=== PATIENT | female | born 1950 | race Caucasian/White ===

== ENCOUNTER 2017-08-28 22:16 | Observation (INO) | payer OTHER ==
[~2017-08-28] VITALS: Ht 154.9 cm; Wt 68.5 kg
[~2017-08-28 22:16] MED LIST: ELAVIL75 MG PO; GABAPENTIN400 MG PO; NEXIUM40 MG PO; SINGULAIR10 MG PO; SOMA350 MG PO
[2017-08-28 22:45] LABS: HEMATOCRIT 34.1 % (36.0-46.0); HEMOGLOBIN 11.9 G/DL (11.9-15.5); MCH 32.2 PG (29.0-34.0); MCHC 34.9 G/DL (30.0-36.0); MCV 92.4 FL (83-99); PLATELET COUNT 198 K/uL (156-360); RBC DIS.WIDTH-CV 11.4 % (11.8-14.6); RED BLOOD COUNT 3.69 M/uL (3.80-5.20); WHITE BLOOD COUNT 6.1 K/uL (4.1-10.2)
[2017-08-28 23:05] LABS: CHLORIDE 102 MEQ/L (99-109); SODIUM 134 MEQ/L (136-147)
[2017-08-28 23:07] LABS: TROP-I INTERPRETATION NEGATIVE; TROPONIN-I < 0.01 ng/mL (0.0-0.30)
[2017-08-28 23:10] LABS: CREATININE 0.8 MG/DL (0.6-1.3); GFR ESTIMATE (CALCULATED) > 59 mL/min/; GLUCOSE 90 mg/dL (70-99); UREA NITROGEN (BUN) 16 mg/dL (9-23)
[2017-08-28 23:15] LABS: ALBUMIN 3.7 G/DL (3.2-4.8); TOTAL BILIRUBIN 0.2 MG/DL (0.0-1.0)
[2017-08-28 23:21] LABS: ALKALINE PHOSPHATASE 78 IU/L (3-129); ALT (GPT) 18 IU/L (3-49); AST (GOT) 18 IU/L (2-34); TOTAL PROTEIN 6.2 G/DL (6.4-8.3)
[2017-08-29 01:09] LABS: APPEARANCE CLEAR ((CLEAR)); BILIRUBIN NEGATIVE; BLOOD NEGATIVE; COLOR STRAW ((YELLOW)); GLUCOSE (STRIP) NEGATIVE; KETONES NEGATIVE; LEUKOCYTES NEGATIVE; NITRITE NEGATIVE; PROTEIN (STRIP) NEGATIVE; SPECIFIC GRAVITY 1.013 (1.000-1.030); UCUL ADDED? NO; UROBILINOGEN 0.2 MG/DL (0.2-1.0)
[2017-08-29 01:20] LABS: AMPHETAMINE NEGATIVE (500 ng/mL); BARBITURATES NEGATIVE (200 ng/mL); BENZODIAZEPINES NEGATIVE (150 ng/mL); BUPRENORPHINE NEGATIVE (10 ng/mL); COCAINE NEGATIVE (150 ng/mL); METHADONE NEGATIVE (200 ng/mL); METHAMPHETAMINE NEGATIVE (500 ng/mL); OPIATES (MORPHINE) NEGATIVE (100 ng/mL); OXYCODONE NEGATIVE (100 ng/mL); PHENCYCLIDINE NEGATIVE (25 ng/mL); PROPOXYPHENE NEGATIVE (300 ng/mL); THC CANNABINOIDS NEGATIVE (50 ng/mL); TRICYCLIC ANTIDEPRESSANTS PRESUMPTIVE POSITIVE (300 ng/mL)
[2017-08-29 06:57] LABS: HDL CHOLESTEROL 55 MG/DL (Desirable>=50); LDL CHOLESTEROL 124 mg/dL (Desirable<100); NON-HDL CHOLESTEROL 136 mg/dL (Desirable<160); TOTAL CHOLESTEROL 191 mg/dL (Desirable<200); TRIGLYCERIDES 60 MG/DL (Normal: <150)
[2017-08-29 09:39] VITALS: BP 144/60
[2017-08-29] MEDS ORDERED: NEOMYCIN-POLYMY10 ML LEFT EAR (11:50)
[2017-08-29] MEDS ORDERED: EXTRA STRENGTH500 M1 PO (11:50)
[2017-08-29] MEDS ORDERED: ASCORBIC ACID500 M3 PO (11:51)
[2017-08-29] MEDS ORDERED: VITAMIN D2000 UNI1 PO (11:51)
[2017-08-29] MEDS ORDERED: CALCIUM + D SO1 EACH PO (11:52)
[2017-08-29] MEDS ORDERED: PROTONIX40 MG PO (11:52)
[2017-08-29] MEDS ORDERED: DAILY VALUE1 EACH PO (11:52)
[2017-08-29] MEDS ORDERED: ACID REDUCER75 MG PO (11:53)
[2017-08-29 12:57] VITALS: BP 122/59
[2017-08-29] MEDS ORDERED: CLOPIDOGREL75 MG PO (15:26)
[2017-08-29 16:16] VITALS: BP 125/59
[2017-08-30 09:27] LABS: HEMOGLOBIN A1c (GLYCOHEMOGLOB) 5.4 % (Below 5.7)
== END 2017-08-29 17:23 | disposition home or self-care (01) ==
LOC: EME 22:16 → EDOF 08-29 05:41 → ENRESERV 08-29 05:43 → 5WEST 08-29 08:34
PROVIDERS: Physician Assistant
DX: G45.9 Transient cerebral ischemic attack, unspecified (principal); K21.9 Gastro-esophageal reflux disease without esophagitis; M79.7 Fibromyalgia; Z79.02 Long term (current) use of antithrombotics/antiplatelets; Z87.11 Personal history of peptic ulcer disease; Z88.0 Allergy status to penicillin; Z88.2 Allergy status to sulfonamides
CPT/HCPCS: 70450; 70551; 71046; 80048; 80053; 80061; 81003; 83036; 84484; 85027; 93005; 93880; 99281; 99285; G0378; J1650

== ENCOUNTER 2018-01-29 08:27 | Emergency (ER) | payer OTHER ==
[~2018-01-29] VITALS: Ht 154.9 cm; Wt 70.0 kg
[~2018-01-29 08:27] MED LIST changes: +ACID REDUCER75 MG PO; +ASCORBIC ACID500 M3 PO; +CALCIUM + D SO1 EACH PO; +CLOPIDOGREL75 MG PO; +DAILY VALUE1 EACH PO; +EXTRA STRENGTH500 M1 PO; +NEOMYCIN-POLYMY10 ML LEFT EAR; +PROTONIX40 MG PO; +VITAMIN D2000 UNI1 PO
[2018-01-29 10:17] LABS: APPEARANCE CLEAR ((CLEAR)); BILIRUBIN NEGATIVE; BLOOD NEGATIVE; COLOR STRAW ((YELLOW)); GLUCOSE (STRIP) NEGATIVE; KETONES NEGATIVE; LEUKOCYTES NEGATIVE; NITRITE NEGATIVE; PROTEIN (STRIP) NEGATIVE; SPECIFIC GRAVITY 1.006 (1.000-1.030); UCUL ADDED? NO; UROBILINOGEN 0.2 MG/DL (0.2-1.0)
[2018-01-29 10:20] LABS: HEMATOCRIT 36.5 % (36.0-46.0); HEMOGLOBIN 12.5 G/DL (11.9-15.5); MCH 32.4 PG (29.0-34.0); MCHC 34.2 G/DL (30.0-36.0); MCV 94.6 FL (83-99); PLATELET COUNT 221 K/uL (156-360); RBC DIS.WIDTH-CV 11.7 % (11.8-14.6); RBC DIS.WIDTH-SD 40.3 % (39-53); RED BLOOD COUNT 3.86 M/uL (3.80-5.20); WHITE BLOOD COUNT 6.4 K/uL (4.1-10.2)
[2018-01-29 10:30] LABS: CHLORIDE 96 mEq/L (99-109); SODIUM 132 mEq/L (136-147)
[2018-01-29 10:31] LABS: GLUCOSE 92 mg/dL (70-99)
[2018-01-29 10:35] LABS: CREATININE 0.8 mg/dL (0.6-1.3); GFR ESTIMATE (CALCULATED) > 59 mL/min/
[2018-01-29 10:36] LABS: UREA NITROGEN (BUN) 7 mg/dL (9-23)
[2018-01-29] MEDS ORDERED: PREDNISONE20 MG PO (10:48)
[2018-01-29] MEDS ORDERED: VIBRAMYCIN100 MG PO (10:54)
[2018-01-29 11:09] VITALS: BP 114/70
== END 2018-01-29 11:11 | disposition home or self-care (01) ==
LOC: EME 08:27
DX: M79.1 Myalgia (principal); J40 Bronchitis, not specified as acute or chronic; L30.9 Dermatitis, unspecified; Z87.01 Personal history of pneumonia (recurrent)
CPT/HCPCS: 71046; 80048; 81003; 85027; 86618; 99281; 99284